=== PATIENT | female | born 1935 | race Two or more races ===

== ENCOUNTER 2017-04-19 10:41 | Emergency (ER) | payer MEDICARE, BC ==
[~2017-04-19] VITALS: Ht 165.1 cm; Wt 84.4 kg
--- NOTE | 2017-04-19 10:45 | NUR ---
BIB RA 860, C/O RIGHT SHOULDER PAIN,S/P SLIP/FALL AT A POOL AREA OF A GYM. PT AAOX3. DENIES HEAD/NECK TRAUMA. DENIES KO. SEEN BY FOR EVAL. SAFETY AND COMFORT MEASURES PROVIDED. WILL MONITOR.
[2017-04-19] MEDS ORDERED: CAN'T RECALL (10:46)
[2017-04-19] MEDS ORDERED: IBUPROFEN 600 MG TABLET PO ONE ×2 (10:49→11:00)
--- NOTE | 2017-04-19 10:50 | NUR ---
PT MEDICATED ORDERED.
--- NOTE | 2017-04-19 10:53 | NUR ---
HAIM AT BS.
--- NOTE | 2017-04-19 11:20 | NUR ---
SLING APPLIED ON RIGHT SHOULDER PER PROTOCOL. TEACHINGS PROVIDED ON PROPER USAGE. VERBALIZED UNDERSTANDING. ALL QUESTIONS ANSWERED.
--- NOTE | 2017-04-19 11:35 | NUR ---
Patient discharged to home in stable condition. Written and verbal after care instructions given. Patient verbalizes understanding of instruction. Pt ambulatory with a steady gait.
[2017-04-19 11:41] VITALS: BP 135/55
== END 2017-04-19 11:53 | disposition home or self-care (01) ==
LOC: ER 10:44
DX: S42.201A Unspecified fracture of upper end of right humerus, initial encounter for closed fracture (principal); I10 Essential (primary) hypertension; W01.0XXA Fall on same level from slipping, tripping and stumbling without subsequent striking against object, initial encounter; Y92.34 Swimming pool (public) as the place of occurrence of the external cause; Y93.89 Activity, other specified; Y99.8 Other external cause status
CPT/HCPCS: 73030-TC; A4606; Z7610

== ENCOUNTER 2017-08-19 00:18 | Emergency (ER) | payer MEDICARE, BC ==
[~2017-08-19] VITALS: Ht 165.1 cm; Wt 84.4 kg
[~2017-08-19 00:18] MED LIST: CAN'T RECALL
--- NOTE | 2017-08-19 00:20 | NUR ---
TO BED 7 AN 82 YO FEMALE PATIENT [id number] FROM HOME. DIZZINES; "FEELS LIKE FALLING OVER WHEN WALKING." PATIENT IS AAOX4, NAD NOTED. VSS. NONDIAPHORETIC. GOWNED. COMFORT AND SAFETY MEASURES IN PLACE.
[2017-08-19] MEDS ORDERED: MECLIZINE HCL 12.5 MG TABLET PO ONE (00:30)
[2017-08-19] MEDS ORDERED: IV NS 0.9% 1,000 ML BAG IV ONE (00:30)
[2017-08-19] MEDS ORDERED: ONDANSETRON HCL/PF 4 MG/2 ML VIAL IVP ONE (00:30)
[2017-08-19] MEDS ORDERED: MECLIZINE HCL 25 MG TABLET ONE (00:37)
[2017-08-19] MEDS ORDERED: ONDANSETRON HCL/PF 4 MG/2 ML VIAL ONE (00:37)
--- NOTE | 2017-08-19 00:45 | NUR ---
STARTED A SALINE LOCK ON THE LAC G20, BLOOD DRAWN AND SENT TO LAB.
--- NOTE | 2017-08-19 00:55 | NUR ---
MEDICATED PATIENT ORDERED BY DR CORBETT.
[2017-08-19 00:56] LABS: APPEARANCE,URINE CLEAR (CLEAR); BILIRUBIN,URINE NEGATIVE (NEGATIVE); BLOOD, URINE NEGATIVE Ery/uL (NEGATIVE); COLOR,URINE DARK YELLO (YELLOW); KETONES,URINE TRACE (NEGATIVE); LEUKOCYTE ESTERASE ,URINE NEGATIVE (NEGATIVE); NITRITE, URINE NEGATIVE (NEGATIVE); PH,URINE 5.5 (5.0-8.0); PROTEIN,URINE NEGATIVE (NEGATIVE); UGLUCOSE NEGATIVE (NEGATIVE); UROBILINOGEN,URINE 0.2 EU/dL (0.2)
[2017-08-19 01:00] LABS: EOSINOPHILS % (AUTO) 1.7 % (0.0-6.0); HEMATOCRIT 26 % (33-45); HEMOGLOBIN 8.6 g/dL (11.5-14.8); LYMPHOCYTES # (AUTO) 0.6 /CMM (0.8-4.8); LYMPHOCYTES % (AUTO) 29.6 % (20.0-44.0); MEAN CORPUSCULAR HEMOGLOBIN 33 PG (26.0-33.0); MEAN CORPUSCULAR HGB CONC 33 g/dl (31.0-36.0); MEAN CORPUSCULAR VOLUME 101 fL (82-100); MONOCYTES # (AUTO) 0.1 /CMM (0.1-1.30); MONOCYTES % (AUTO) 6.2 % (2.0-12.0); NEUTROPHILS # (AUTO) 1.2 /CMM (1.8-8.9); NEUTROPHILS % (AUTO) 61.5 % (43.0-81.0); PLATELET COUNT (AUTO) 313 /CMM (150-450); RDW COEFFICIENT OF VARIATION 24.5 (11.5-15.0); RED BLOOD CELL COUNT(AUTO) 2.58 MIL/uL (4.0-5.2)
[2017-08-19 01:05] LABS: BACTERIA,URINE None seen /HPF (None Seen); RBC,URINE NONE SEEN /HPF (0-2); SQUAMOUS EPITHELIAL CELL,UR Few /HPF (None Seen); WBC,URINE NONE SEEN /HPF (0-3)
[2017-08-19 01:10] LABS: CARBON DIOXIDE 26 mmol/L (21-32); CHLORIDE 108 mmol/L (98-107); CREATININE 1.1 mg/dL (0.6-1.3); GLUCOSE 121 mg/dL (74-106); POTASSIUM 4.1 mmol/L (3.5-5.1); SODIUM SERUM 144 mmol/L (136-145); UREA NITROGEN, BLOOD 22 mg/dL (7-18)
[2017-08-19 01:11] LABS: INR 0.93 (0.87-1.13); PROTHROMBIN TIME 9.7 SECS (9.5-12.7)
[2017-08-19 01:14] LABS: TROPONIN I < 0.017 ng/mL (0.00-0.056)
[2017-08-19 01:15] LABS: ALANINE AMINOTRANSFERASE 28 U/L (12-78); ALBUMIN 3.8 g/dL (3.4-5.0); ALKALINE PHOSPHATASE 64 U/L (46-116); ASPARTATE AMINOTRANSFERASE 14 U/L (15-37); BILIRUBIN,DIRECT 0.2 mg/dL (0.0-0.2); BILIRUBIN,TOTAL 0.8 mg/dL (0.2-1.0); TOTAL PROTEIN, SERUM 6.7 g/dL (6.4-8.2)
[2017-08-19 01:17] LABS: EOSINOPHILS % (MANUAL) 2 % (0-4); LYMPHOCYTES % (MANUAL) 33 % (16-48); MONOCYTES % (MANUAL) 5 % (0-11.0); NEUTROPHILS % (MANUAL) 60 (42-76)
--- NOTE | 2017-08-19 02:10 | NUR ---
patient reports feeling better, with relief from dizziness. Patient able to stand up and walk with steady gait.
--- NOTE | 2017-08-19 02:24 | NUR ---
IV removed. Catheter intact and site benign. Pressure and 4x4 applied to site. No bleeding noted. Patient discharged to home in stable condition. Written and verbal after care instructions given. Patient verbalizes understanding of instruction. Patient is ambulatory with steady gait, no further complaints.
[2017-08-19 02:41] VITALS: BP 129/74
== END 2017-08-19 02:41 | disposition home or self-care (01) ==
LOC: ER 00:19
DX: R42 Dizziness and giddiness (principal); J32.9 Chronic sinusitis, unspecified; I10 Essential (primary) hypertension
CPT/HCPCS: 36415; 70450; 71010; 80048; 80076; 81001; 84484; 85025; 85730; 96361; 96374; 99285; A4606; J2405; J7030; J8597; 81000-TC; Z7610

== ENCOUNTER 2018-05-27 17:39 | Inpatient (IN) | payer MEDICARE, BC ==
[~2018-05-27] VITALS: Ht 160 cm; Wt 74.4 kg
--- NOTE | 2018-05-27 17:55 | NUR ---
PRESENTS TO ER C/O BEING WEAK AND DIZZY SINCE THIS AM. HX OF ANEMIA. A/OX 4, BREATHING EVEN AND UNLABORED. NO SOB, NO OTHER NEURO DEFICITS. NAD, VITALS STABLE. SAFETY AND COMFORT MEASURES IN PLACE. AWAITING MD ORDERS.
--- NOTE | 2018-05-27 18:15 | NUR ---
NEW IV STARTED ON LAC, 20G. BLOOD DRAWN AND SENT TO LAB.
--- NOTE | 2018-05-27 18:19 | NUR ---
EMT AT BEDSIDE FOR EKG
[2018-05-27 18:34] LABS: BASOPHILS % (AUTO) 0.4 % (0.0-2.0); EOSINOPHILS % (AUTO) 2.9 % (0.0-6.0); LYMPHOCYTES # (AUTO) 0.4 /CMM (0.8-4.8); LYMPHOCYTES % (AUTO) 15.7 % (20.0-44.0); MEAN CORPUSCULAR HEMOGLOBIN 32 PG (26.0-33.0); MEAN CORPUSCULAR HGB CONC 35 g/dl (31.0-36.0); MEAN CORPUSCULAR VOLUME 93 fL (82-100); MONOCYTES # (AUTO) 0.1 /CMM (0.1-1.30); MONOCYTES % (AUTO) 3.1 % (2.0-12.0); NEUTROPHILS % (AUTO) 77.9 % (43.0-81.0); PLATELET COUNT (AUTO) 232 /CMM (150-450); WHITE BLOOD COUNT (AUTO) 2.6 K/uL (4.3-11.0)
[2018-05-27 18:38] LABS: RED BLOOD CELL COUNT(AUTO) 1.76 MIL/uL (4.0-5.2)
[2018-05-27 18:39] LABS: HEMATOCRIT 16 % (33-45); HEMOGLOBIN 5.6 g/dL (11.5-14.8)
[2018-05-27 18:44] LABS: INR 0.89 (0.85-1.15)
[2018-05-27 18:46] LABS: TROPONIN I 0.065 ng/mL (0.00-0.056)
[2018-05-27 18:51] LABS: CALCIUM, SERUM 9.2 mg/dL (8.5-10.1); CARBON DIOXIDE 28 mmol/L (21-32); CHLORIDE 107 mmol/L (98-107); CREATININE 1.1 mg/dL (0.6-1.3); GLUCOSE 92 mg/dL (74-106); POTASSIUM 4.3 mmol/L (3.5-5.1); SODIUM SERUM 141 mmol/L (136-145); UREA NITROGEN, BLOOD 27 mg/dL (7-18)
[2018-05-27 18:57] LABS: ALANINE AMINOTRANSFERASE 25 U/L (12-78); ALBUMIN 3.6 g/dL (3.4-5.0); ALKALINE PHOSPHATASE 51 U/L (46-116); ASPARTATE AMINOTRANSFERASE 13 U/L (15-37); BILIRUBIN,DIRECT 0.2 mg/dL (0.0-0.2); BILIRUBIN,TOTAL 0.8 mg/dL (0.2-1.0); TOTAL PROTEIN, SERUM 6.2 g/dL (6.4-8.2)
--- NOTE | 2018-05-27 19:06 | NUR ---
REPORT GIVEN TO COLTEN SALMON FOR DARREL.
--- NOTE | 2018-05-27 19:10 | NUR ---
RECEIVED REPORT FROM CIPRIANO. PT RESTING COMFORTABLY. VSS.
[2018-05-27] MEDS ORDERED: PYRI100T2 PO (19:17)
[2018-05-27] MEDS ORDERED: OMEG1CAP PO (19:17)
[2018-05-27] MEDS ORDERED: CHOL100044 PO (19:17)
[2018-05-27] MEDS ORDERED: AMLO10TA2 PO (19:17)
[2018-05-27] MEDS ORDERED: CYAN10009 PO (19:17)
[2018-05-27] MEDS ORDERED: THIA100T70 PO (19:17)
[2018-05-27] MEDS ORDERED: RANI150T43 PO (19:17)
[2018-05-27] MEDS ORDERED: TRAZ-182 PO (19:17)
[2018-05-27] MEDS ORDERED: ASPI-1169 PO (19:17)
[2018-05-27] MEDS ORDERED: MELA1TAB25 PO (19:17)
--- NOTE | 2018-05-27 19:30 | NUR ---
SOCIETY REPORTER AT BEDSIDE FOR SECOND TYPE AND SCREEN
[2018-05-27 19:35] LABS: EOSINOPHILS % (MANUAL) 1 % (0-4); LYMPHOCYTES % (MANUAL) 14 % (16-48); MONOCYTES % (MANUAL) 2 % (0-11.0); NEUTROPHILS % (MANUAL) 83 (42-76)
[2018-05-27] MEDS ORDERED: IV NS 0.9% 1,000 ML IV PRN (20:08)
[2018-05-27] MEDS ORDERED: HYDROCODONE/APAP 10/325MG 1 EA TABLET PO PRN (20:30)
[2018-05-27] MEDS ORDERED: MAGNESIUM HYDROXIDE 30 ML UDC PO PRN (20:30)
[2018-05-27] MEDS ORDERED: ONDANSETRON HCL/PF 4 MG/2 ML VIAL IVP PRN (20:30)
[2018-05-27] MEDS ORDERED: ACETAMINOPHEN 325 MG TABLET PO PRN (20:30)
[2018-05-27] MEDS ORDERED: HYDROCODONE/APAP 5/325MG 1 EACH TABLET PO PRN (20:30)
[2018-05-27] MEDS ORDERED: MAG HYDROX/AL HYDROX/SIMETH 30 ML UDC PO PRN (20:30)
[2018-05-27] MEDS ORDERED: Z GUARD REMEDY 2 OZ OINT TP PRN (20:30)
--- NOTE | 2018-05-27 20:33 | NUR ---
BEGAN BLOOD TRANSFUSION. LEFT AC 20G. PT COMFROTABLE. VSS
--- NOTE | 2018-05-27 20:45 | NUR ---
GAVE REPORT TO GAVINO NURSE FOR 119-1 FOR DARREL
[2018-05-27 21:00] VITALS: BP 147/65
--- NOTE | 2018-05-27 21:00 | NUR ---
RN GAVINO ADMITTING NOTES RECEIVED 83YR OLD F FROM ER, REPORT GIVEN BY COLTEN. PT AOX4 [place] SPEAKING, ON R/A SAT 98%, DENIES ANY PAIN, ABLE TO AMBULATE TO BED W/STABLE GAIT, WITH ASSIST. RECEIVED W/ON GOING BLOOD TRANSFUSION OF PRBC, 1 UNIT OF TOTAL 3 UNITS TO BE TRANSFUSED, W/LAC#20G, WELL SECURED AND PATENT, SKIN INTACT, ALL ADMITTING ORDERS ENTERED, NO SKIN ISSUES NOTED, WILL CONT TO MONITOR PT.
--- NOTE | 2018-05-27 21:05 | NUR ---
TRANSFERRED PT TO [facility] PER ACLS PROTOCOL. BLOOD TRANSFUSING ON ADMISSION. 20G LEFT AC. FIRST UNIT OF PRBC. PT TOLERATING WELL.
[2018-05-27 21:30] VITALS: BP 144/65
[2018-05-27 22:00] VITALS: BP 125/69
[2018-05-27] MEDS ORDERED: TRAZODONE 50 MG TABLET PO SCH (22:00)
[2018-05-27] MEDS ORDERED: Medication Not On Formulary EA (Melatonin/Pyridoxine HCl (B6) (Melatonin 10 mg Tablet) 1 PO SCH (22:00)
[2018-05-27 23:54] VITALS: BP 111/54
[2018-05-28] VITALS (12 sets, daily range): BP systolic 113–145; BP diastolic 49–69
--- NOTE | 2018-05-28 06:36 | NUR ---
RN GAVINO CLOSING NOTE PT ENDORSED AOX4, ON R/A, DENIES ANY PAIN, BPR X5, ALL NEEDS MET, CLOSE MONITORING D/T S/P 3 UNITS OF PRBC TRANSFUSION, NO A/R NOTED, NOS/SX OF FLUID EXCESS NOTED, LUNGS CLEAR ON AUSCULTATION, SAT 98% ON R/A, V/S STABLE, AFEBRILE, IV SITE INTACT, NO S/S OF INFILTRATION, WELL SECURED, WILL ENDORSE TOAM SHIFT RN TO F/U W/CBC RESULTS W/MD WELL DC PLANNING PT PLANNING TO DC HOME .
[2018-05-28 06:50] LABS: CARBON DIOXIDE 24 mmol/L (21-32); CHLORIDE 109 mmol/L (98-107); CREATININE 0.9 mg/dL (0.6-1.3); GLUCOSE 96 mg/dL (74-106); MAGNESIUM 1.9 mg/dL (1.8-2.4); PHOSPHORUS 4.3 mg/dL (2.5-4.9); POTASSIUM 4.3 mmol/L (3.5-5.1); SODIUM SERUM 143 mmol/L (136-145); UREA NITROGEN, BLOOD 22 mg/dL (7-18)
[2018-05-28 07:05] LABS: CHOLESTEROL 109 mg/dL (<200); HDL CHOLESTEROL 68 mg/dL (40-60); LDL 44 mg/dL (0-99); THYROID STIMULATING HORMONE 0.028 uIU/mL (0.358-3.74); TRIGLYCERIDES 70 mg/dL (30-150)
--- NOTE | 2018-05-28 08:00 | NUR ---
GAVINO RN , patient received in bed skin w/d color good resp unlabored no sob noted plan of care discussed and verbalized understanding patient encouraged use of call light to make all needs known will continue to assess and evaluate iv infusing well with no signs of redness or swelling noted call light with in reach
[2018-05-28 08:13] LABS: BASOPHILS % (AUTO) 0.2 % (0.0-2.0); EOSINOPHILS % (AUTO) 4.1 % (0.0-6.0); HEMATOCRIT 24 % (33-45); HEMOGLOBIN 8.1 g/dL (11.5-14.8); LYMPHOCYTES # (AUTO) 0.7 /CMM (0.8-4.8); LYMPHOCYTES % (AUTO) 17.2 % (20.0-44.0); MEAN CORPUSCULAR HEMOGLOBIN 32 PG (26.0-33.0); MEAN CORPUSCULAR HGB CONC 34 g/dl (31.0-36.0); MEAN CORPUSCULAR VOLUME 94 fL (82-100); MONOCYTES # (AUTO) 0.1 /CMM (0.1-1.30); MONOCYTES % (AUTO) 2.2 % (2.0-12.0); NEUTROPHILS # (AUTO) 3.2 /CMM (1.8-8.9); NEUTROPHILS % (AUTO) 76.3 % (43.0-81.0); PLATELET COUNT (AUTO) 180 /CMM (150-450); RDW COEFFICIENT OF VARIATION 16.7 (11.5-15.0); RED BLOOD CELL COUNT(AUTO) 2.56 MIL/uL (4.0-5.2); WHITE BLOOD COUNT (AUTO) 4.2 K/uL (4.3-11.0)
[2018-05-28] MEDS ORDERED: FAMOTIDINE (20 MG) 20 MG TABLET PO SCH (09:00)
[2018-05-28] MEDS ORDERED: THIAMINE HCL 100 MG TABLET PO SCH (09:00)
[2018-05-28] MEDS ORDERED: PYRIDOXINE HCL 50 MG TABLET PO SCH (09:00)
[2018-05-28] MEDS ORDERED: Medication Not On Formulary EA (Omega-3 Fatty Acids/Fish Oil (Fish Oil 1,000 Mg Capsule) PO SCH (09:00)
[2018-05-28] MEDS ORDERED: CYANOCOBALAMIN 500 MCG TABLET PO SCH (09:00)
[2018-05-28] MEDS ORDERED: PANTOPRAZOLE 40 MG VIAL IV SCH (09:00)
[2018-05-28] MEDS ORDERED: CHOLECALCIFEROL 1,000 UNIT TABLET (VIT D3) PO SCH (09:00)
[2018-05-28] MEDS ORDERED: AMLODIPINE BESYLATE 10 MG TABLET PO SCH (09:00)
--- NOTE | 2018-05-28 10:00 | NUR ---
GAVINO RN, AM care given and made patient comfortable
[2018-05-28 10:08] LABS: EOSINOPHILS % (MANUAL) 1 % (0-4); LYMPHOCYTES % (MANUAL) 14 % (16-48); MONOCYTES % (MANUAL) 2 % (0-11.0); NEUTROPHILS % (MANUAL) 83 (42-76)
[2018-05-28 10:09] LABS: IRON, SERUM 170 ug/dl (50-175); TOTAL IRON BINDING CAPACITY 253 ug/dl (250-450)
--- NOTE | 2018-05-28 11:00 | NUR ---
GAVINO RN, seen by and exam to patient and discharge orders given hep lock discontinued and no signs of redness or swelling noted patient getting ready to be discharged home all belongings packed
--- NOTE | 2018-05-28 12:00 | NUR ---
GAVINO RN, patient discharged home with satisfactory condition all discharge instructions given and verbalized understanding patient will follow up with PCP and call if any problems occurs last hgb 8.0
== END 2018-05-28 12:05 | disposition home or self-care (01) | DRG 811 ==
LOC: ER 17:43 → TELE1 20:35 → TELE-TD 21:23
PROVIDERS: ADMIT Registered Nurse; ATTEND Registered Nurse
PROC: 30233N1 Transfusion of Nonautologous Red Blood Cells into Peripheral Vein, Percutaneous Approach (ICD-10-PCS; principal; 2018-05-27)
DX: D46.9 Myelodysplastic syndrome, unspecified (principal); I21.A1 Myocardial infarction type 2; I10 Essential (primary) hypertension; Z79.82 Long term (current) use of aspirin; Z79.899 Other long term (current) drug therapy; K21.9 Gastro-esophageal reflux disease without esophagitis; G47.00 Insomnia, unspecified; I25.2 Old myocardial infarction
CPT/HCPCS: 36415; 71045-TC; 80048-TC; 80061-TC; 80076-TC; 83540-TC; 83735-TC; 84100-TC; 84443-TC; 84484-TC; 85025-TC; 85027-TC; 85730-TC; 86850-TC; 86921-TC; 87081-TC; A4606; C9113; J7030; J7050; P9016-BL; Z7610

== ENCOUNTER 2018-12-04 11:28 | Emergency (ER) | payer MEDICARE, BC ==
[~2018-12-04] VITALS: Ht 160 cm; Wt 74.8 kg
[~2018-12-04 11:28] MED LIST changes: +AMLO10TA7 PO; +ASPI-1169 PO; -CAN'T RECALL; +CHOL100044 PO; +CYAN10009 PO; +MELA1TAB25 PO; +OMEG1CAP PO; +PYRI100T2 PO; +RANI150T43 PO; +THIA100T70 PO; +TRAZ-182 PO
[2018-12-04] MEDS ORDERED: IV NS 0.9% 500 ML BAG IV ONE (12:00)
--- NOTE | 2018-12-04 12:08 | NUR ---
patient presented to the ER who c/o dizzy on room air, breathing evenly and unlabored. Denies any pain at this time. connected to the monitor and puls eox. kept comfortable, will continue to monitor accordingly.
[2018-12-04 12:20] LABS: HEMATOCRIT 23 % (33-45); LYMPHOCYTES # (AUTO) 0.4 /CMM (0.8-4.8); MONOCYTES # (AUTO) 0.1 /CMM (0.1-1.30); NEUTROPHILS # (AUTO) 1.1 /CMM (1.8-8.9)
[2018-12-04] MEDS ORDERED: TIMO5SOL8 EACHEYE (12:28)
[2018-12-04] MEDS ORDERED: ASPI-1152 PO (12:28)
[2018-12-04] MEDS ORDERED: FAMO20TA8 PO (12:28)
[2018-12-04] MEDS ORDERED: VENE100T PO (12:28)
[2018-12-04] MEDS ORDERED: METH5TAB6 PO (12:28)
[2018-12-04] MEDS ORDERED: METO25TA6 PO (12:28)
[2018-12-04] MEDS ORDERED: ATOR40TA PO (12:28)
[2018-12-04] MEDS ORDERED: FURO20TA4 PO (12:28)
[2018-12-04 12:29] LABS: CALCIUM, SERUM 8.7 mg/dL (8.5-10.1); CARBON DIOXIDE 29 mmol/L (21-32); CHLORIDE 108 mmol/L (98-107); CREATININE 0.8 mg/dL (0.6-1.3); GLUCOSE 99 mg/dL (74-106); POTASSIUM 4.4 mmol/L (3.5-5.1); SODIUM SERUM 142 mmol/L (136-145); UREA NITROGEN, BLOOD 17 mg/dL (7-18)
[2018-12-04 12:35] LABS: ALANINE AMINOTRANSFERASE 26 U/L (12-78); ALBUMIN 3.7 g/dL (3.4-5.0); ALKALINE PHOSPHATASE 115 U/L (46-116); ASPARTATE AMINOTRANSFERASE 12 U/L (15-37); BILIRUBIN,DIRECT 0.3 mg/dL (0.0-0.2); BILIRUBIN,TOTAL 1.4 mg/dL (0.2-1.0); TOTAL PROTEIN, SERUM 6.1 g/dL (6.4-8.2)
[2018-12-04 12:36] LABS: BASOPHILS % (AUTO) 0.4 % (0.0-2.0); EOSINOPHILS % (AUTO) 0.7 % (0.0-6.0); HEMOGLOBIN 8.1 g/dL (11.5-14.8); LYMPHOCYTES % (AUTO) 23.9 % (20.0-44.0); MEAN CORPUSCULAR HGB CONC 35 g/dl (31.0-36.0); MEAN CORPUSCULAR VOLUME 93 fL (82-100); MONOCYTES % (AUTO) 6.4 % (2.0-12.0); NEUTROPHILS % (AUTO) 68.6 % (43.0-81.0); PLATELET COUNT (AUTO) 121 /CMM (150-450)
[2018-12-04 12:40] LABS: WHITE BLOOD COUNT (AUTO) 1.7 K/uL (4.3-11.0)
[2018-12-04 13:02] VITALS: BP 135/65
--- NOTE | 2018-12-04 13:03 | NUR ---
Patient discharged to home in stable condition. Written and verbal after care instructions given. Patient verbalizes understanding of instruction.IV removed. Catheter intact and site benign. Pressure and 4x4 applied to site. No bleeding noted.
[2018-12-04 13:11] LABS: LYMPHOCYTES % (MANUAL) 23 % (16-48); MONOCYTES % (MANUAL) 7 % (0-11.0); NEUTROPHILS % (MANUAL) 70 (42-76)
== END 2018-12-04 13:03 | disposition home or self-care (01) ==
LOC: ER 11:28
DX: D46.9 Myelodysplastic syndrome, unspecified (principal); R42 Dizziness and giddiness; I10 Essential (primary) hypertension; Z79.82 Long term (current) use of aspirin
CPT/HCPCS: 36415; 80048; 80076; 84484; 85025; 85730; 86850; 93005; 99284; J7040

== ENCOUNTER 2019-01-07 07:20 | Emergency (ER) | payer MEDICARE, BC ==
[~2019-01-07] VITALS: Ht 154.9 cm; Wt 77.1 kg
[~2019-01-07 07:20] MED LIST changes: +ASPI-1152 PO; -ASPI-1169 PO; +ATOR40TA PO; -CHOL100044 PO; -CYAN10009 PO; +FAMO20TA8 PO; +FURO20TA4 PO; -MELA1TAB25 PO; +METH5TAB6 PO; +METO25TA6 PO; -OMEG1CAP PO; -PYRI100T2 PO; -RANI150T43 PO; -THIA100T70 PO; +TIMO5SOL8 EACHEYE; +VENE100T PO
--- NOTE | 2019-01-07 07:40 | NUR ---
PATIENT CAME IN FOR UPPER BACK PAIN. PATIENT PREFERRED TO SIT ON THE CHAIR DUE TO PAIN. KEPT COMFORTABLE.
--- NOTE | 2019-01-07 07:45 | NUR ---
DR. RANKIN AT BEDSIDE FOR EVALUATION.
[2019-01-07 08:14] LABS: BASOPHILS # (AUTO) 0.1 /CMM (0.0-0.2); BASOPHILS % (AUTO) 0.9 % (0.0-2.0); EOSINOPHILS % (AUTO) 0.5 % (0.0-6.0); HEMATOCRIT 24 % (33-45); HEMOGLOBIN 8.5 g/dL (11.5-14.8); LYMPHOCYTES # (AUTO) 0.5 /CMM (0.8-4.8); LYMPHOCYTES % (AUTO) 7.9 % (20.0-44.0); MEAN CORPUSCULAR HGB CONC 35 g/dl (31.0-36.0); MEAN CORPUSCULAR VOLUME 92 fL (82-100); MONOCYTES # (AUTO) 0.6 /CMM (0.1-1.30); MONOCYTES % (AUTO) 10.4 % (2.0-12.0); NEUTROPHILS # (AUTO) 4.8 /CMM (1.8-8.9); NEUTROPHILS % (AUTO) 80.3 % (43.0-81.0); PLATELET COUNT (AUTO) 244 /CMM (150-450); RED BLOOD CELL COUNT(AUTO) 2.64 MIL/uL (4.0-5.2)
[2019-01-07 08:20] LABS: CALCIUM, SERUM 8.5 mg/dL (8.5-10.1); CARBON DIOXIDE 30 mmol/L (21-32); CHLORIDE 107 mmol/L (98-107); CREATININE 0.8 mg/dL (0.6-1.3); GLUCOSE 126 mg/dL (74-106); POTASSIUM 4.1 mmol/L (3.5-5.1); SODIUM SERUM 142 mmol/L (136-145); UREA NITROGEN, BLOOD 12 mg/dL (7-18)
--- NOTE | 2019-01-07 09:26 | NUR ---
PIV REMOVED AND APPLIED GAUZE AND TAPE, RX PROVIDED, Patient discharged to home in stable condition. Written and verbal after care instructions given. Patient verbalizes understanding of instruction. Accompanied by family.
[2019-01-07 09:27] VITALS: BP 127/81
== END 2019-01-07 09:29 | disposition home or self-care (01) ==
LOC: ER 07:22
DX: M54.6 Pain in thoracic spine (principal); R94.31 Abnormal electrocardiogram [ECG] [EKG]; I25.10 Atherosclerotic heart disease of native coronary artery without angina pectoris; D64.9 Anemia, unspecified; I10 Essential (primary) hypertension; E78.5 Hyperlipidemia, unspecified; Z95.1 Presence of aortocoronary bypass graft; Z79.82 Long term (current) use of aspirin
CPT/HCPCS: 36415; 71045-TC; 80048-TC; 84484-TC; 85025-TC